=== PATIENT | female | born 1965 | race Caucasian/White ===

== ENCOUNTER 2019-06-12 07:30 | Inpatient (IN) | payer OTHER ==
[2019-06-09 16:32] VITALS: BMI 21.9
--- NOTE | 2019-06-12 07:48 | HP ---
Admitting History and Physical - Admission Chief Complaint: Prolonged menses History of Present Illness: 53 yo Para 2 with h/o prolonged menses associated with anemia is pre op for hysterectomy. History Source: Patient Limitations to Obtaining History: No Limitations - Past Medical History ...LMP: 06/05/19 ...: No - Past Surgical History Past Surgical History: Yes: None Additional Past Surgical History: Heart surgery for murmur - Smoking History Smoking history: Never smoked Have you smoked in the past 12 months: No - Alcohol/Substance Use Hx Alcohol Use: No - Social History Usual Living Arrangement: Yes: With Spouse, With Child History of Recent Travel: No Home Medications - Allergies Allergies/Adverse Reactions: Allergies Allergy/AdvReac Type Severity Reaction Status Date / Time ibuprofen [From Advil] Allergy Intermediate Swelling Verified 06/12/19 06:52 - Home Medications Home Medications: Ambulatory Orders Ferrous Sulfate [Feosol] 325 mg PO DAILY 08/27/17 Oxycodone HCl/Acetaminophen [Percocet 5-325 mg Tablet] 1 tab PO Q4H #20 tablet MDD 20 06/14/19 Family Medical History Family History: Unremarkable Review of Systems - Review of Systems Constitutional: reports: No Symptoms Eyes: reports: No Symptoms HENT: reports: No Symptoms Neck: reports: No Symptoms Cardiovascular: denies: Chest Pain Respiratory: reports: No Symptoms Gastrointestinal: reports: No Symptoms Genitourinary: reports: No Symptoms Breasts: reports: No Symptoms Reported Musculoskeletal: reports: No Symptoms Neurological: reports: No Symptoms Psychiatric: reports: No Symptoms Pain Intensity: 0 Physical Examination Vital Signs: Vital Signs Temperature 98.0 F 06/12/19 06:50 Pulse Rate 81 06/12/19 06:50 Respiratory Rate 20 06/12/19 06:50 Blood Pressure 120/95 06/12/19 06:50 O2 Sat by Pulse Oximetry (%) 100 06/12/19 06:49 Constitutional: Yes: Well Nourished Eyes: Yes: Conjunctiva Clear HENT: Yes: Atraumatic Neck: Yes: Supple Cardiovascular: Yes: Regular Rate and Rhythm Respiratory: Yes: Regular Gastrointestinal: Yes: Normal Bowel Sounds Breast(s): Yes: WNL Musculoskeletal: Yes: WNL Extremities: Yes: WNL Integumentary: Yes: WNL Neurological: Yes: Alert, Oriented Psychiatric: Yes: Alert, Oriented Problem List - Problems (1) Menorrhagia Problems reviewed: Yes Code(s): N92.0 - EXCESSIVE AND FREQUENT MENSTRUATION WITH REGULAR CYCLE Qualifiers: Menorrahagia type: with regular cycle Qualified Code(s): N92.0 - Excessive and frequent menstruation with regular cycle Assessment/Plan Menorrhagia Pre op for hysterectomy Consent signed Anesthesia to see patient
[2019-06-12] MEDS ORDERED: ceFAZolin SODIUM 1 GM VIAL IVPB ONE (08:10)
[2019-06-12] MEDS ORDERED: oxyCODONE HCL 5 MG TABLET PO PRN ×2 (10:00→10:01)
[2019-06-12] MEDS ORDERED: ONDANSETRON 4 MG/2 ML VIAL IVPUSH PRN (10:00)
[2019-06-12] MEDS ORDERED: ACETAMINOPHEN 1000 MG/100 ML VIAL (NON FORMULARY) IVPB ONE (10:11)
[2019-06-12] MEDS ORDERED: IBUPROFEN 800 MG/8 ML IJ IVPB PRN (10:19)
--- NOTE | 2019-06-12 10:22 | OP ---
Operative Note - Note: Operative Date: 06/12/19 Pre-Operative Diagnosis: Menorrhagia Operation: Subtotal hysterectomy / Bilateral salpingectomy Findings: Enlarged myomatous uterus Post-Operative Diagnosis: Other (Leiomyomatous uterus) Surgeon: Stephanie Umana Molecular Biology Director: Rowdy Jessica Anesthesia: General Specimens Removed: Uterus / Tubes Estimated Blood Loss (mls): 150
[2019-06-12] MEDS: DEXTROSE 5%-LACTATED RINGERS 1,000 ML IV SCH ×2 (12:15→18:42)
--- NOTE | 2019-06-12 12:47 | PN ---
Progress Note (short form) - Note Progress Note: I assisted Dr. PASCUAL at hysterecomy, BS, for the entire case.
[2019-06-12] MEDS ORDERED: HYDROmorphone HCl 2 MG/ML VIAL IVPB PRN (12:50)
[2019-06-12] MEDS: LACTATED RINGERS SOLUTION 1,000 ML IV SCH (14:52)
[2019-06-12] MEDS: ACETAMINOPHEN 1000 MG/100 ML VIAL (NON FORMULARY) IVPB SCH ×2 (16:36→21:49)
[2019-06-12] MEDS ORDERED: FLU VACCINE QUAD 60 MCG/0.5 ML (MDV 19-20) IM ONE (19:00)
[2019-06-13] MEDS: DEXTROSE 5%-LACTATED RINGERS 1,000 ML IV SCH (02:26)
[2019-06-13] MEDS: ACETAMINOPHEN 1000 MG/100 ML VIAL (NON FORMULARY) IVPB SCH ×2 (04:09→14:44)
--- NOTE | 2019-06-13 12:49 | PN ---
Progress Note, Physician Chief Complaint: Post op History of Present Illness: 53 yo Para 2, status post abdominal hysterectomy, seen and evaluated. She c/o incision pain. She's lying in bed and feels hungry. - Current Medication List Current Medications: Active Medications Fentanyl (Sublimaze Injection -) 50 mcg IVPUSH [id number] PRN PRN Reason: PAIN-PACU ORDER X 4 DOSES ONLY Hydromorphone HCl (Dilaudid Vial -) 1 mg IVPB Q4H PRN PRN Reason: PAIN LEVEL 7 - 10 Last Admin: 06/12/19 13:48 Dose: 1 mg Lactated Ringer's (Lactated Ringers Solution) 1,000 mls @ 125 mls/hr IV [facility] Last Admin: 06/12/19 14:52 Dose: Not Given Dextrose/Lactated Ringer's (D5-Lr -) 1,000 mls @ 125 mls/hr IV [facility] Last Admin: 06/13/19 02:26 Dose: 125 mls/hr Ibuprofen (Caldolor Injection -) 800 mg IVPB Q8H PRN PRN Reason: FEVER Ondansetron HCl (Zofran Injection) 4 mg IVPUSH Q6H PRN PRN Reason: NAUSEA AND/OR VOMITING Last Admin: 06/12/19 16:35 Dose: 4 mg Oxycodone/Acetaminophen (Percocet 5/325 -) 1 combo PO Q4H PRN PRN Reason: PAIN LEVEL 1-5 - Objective Vital Signs: Vital Signs Temperature 98.8 F 06/13/19 10:00 Pulse Rate 85 06/13/19 10:00 Respiratory Rate 16 06/13/19 10:00 Blood Pressure 120/64 06/13/19 10:00 O2 Sat by Pulse Oximetry (%) 98 06/13/19 09:00 Constitutional: No: No Distress Eyes: Yes: Conjunctiva Clear HENT: Yes: Atraumatic Neck: Yes: Supple Cardiovascular: Yes: Regular Rate and Rhythm Respiratory: Yes: Regular Gastrointestinal: Yes: Other (Positive incision pain, dressing intact) Wound/Incision: Yes: Clean/Dry Neurological: Yes: Alert, Oriented ...Motor Strength: WNL Psychiatric: Yes: Alert, Oriented Problem List - Problems (1) Menorrhagia Problems reviewed: Yes Code(s): N92.0 - EXCESSIVE AND FREQUENT MENSTRUATION WITH REGULAR CYCLE Qualifiers: Menorrahagia type: with regular cycle Qualified Code(s): N92.0 - Excessive and frequent menstruation with regular cycle (2) Status post abdominal hysterectomy Problems reviewed: Yes Code(s): Z90.710 - ACQUIRED ABSENCE OF BOTH CERVIX AND UTERUS Assessment/Plan Status post abdominal hysterectomy Ambulation Analgesia as needed Refular diet F/U Labs D/C IV fluid
[2019-06-13] MEDS: ACETAMINOPHEN 325 MG TABLET (FP) PO PRN ×2 (13:03→21:30)
[2019-06-13] MEDS: oxyCODONE HCL 5 MG TABLET PO PRN ×2 (13:04→21:29)
[2019-06-13 13:35] LABS: BASO % 0.2 % (0-2.0); EOS % 0.1 % (0-4.5); HEMATOCRIT 23.1 % (32.4-45.2); LYMPH % 6.8 % (8-40); MCH 20.1 pg (25.7-33.7); MEAN CELL VOLUME 66.8 fl (80-96); MEAN PLT VOLUME 8.3 fl (7.5-11.1); MONO % 5.6 % (3.8-10.2); NEUT % 87.3 % (42.8-82.8); PLATELET COUNT 320 K/MM3 (134-434); RBC 3.46 M/mm3 (3.60-5.2); RDW 17.3 % (11.6-15.6); WHITE BLOOD COUNT 11.4 K/mm3 (4.0-10.0)
[2019-06-13] MEDS: LACTATED RINGERS SOLUTION 1,000 ML IV SCH (13:39)
[2019-06-13 14:03] LABS: ANISOCYTOSIS 2+; PLATELET ESTIMATE ADEQUATE
[2019-06-13 14:04] LABS: BLOOD UREA NITROGEN 6.1 mg/dL (7-18); CALCIUM 7.8 mg/dL (8.5-10.1); CREATININE 0.4 mg/dL (0.55-1.3)
--- NOTE | 2019-06-13 14:34 | PN ---
Progress Note (short form) - Note Progress Note: Anesthesia postop note 53 y/o f s/p GA for hysterectomy, studio potter for postop pain management POD#1, vss, aaox3, no complaints, pain well controlled, studio potter discontinued. No anesthesia complications.
[2019-06-13] MEDS: FERROUS SO4 325 MG TABLET (FP) PO SCH (16:50)
[2019-06-14] MEDS: ACETAMINOPHEN 325 MG TABLET (FP) PO PRN (08:47)
[2019-06-14] MEDS: oxyCODONE HCL 5 MG TABLET PO PRN (08:48)
[2019-06-14] MEDS: FERROUS SO4 325 MG TABLET (FP) PO SCH (08:49)
[2019-06-14 13:59] VITALS: BP 120/84; PULSE 77; TEMP 98.2
--- NOTE | 2019-06-14 14:12 | DS ---
Physical Examination Vital Signs: Vital Signs Temperature 98.2 F 06/14/19 13:56 Pulse Rate 77 06/14/19 13:56 Respiratory Rate 20 06/14/19 13:56 Blood Pressure 120/84 06/14/19 13:56 O2 Sat by Pulse Oximetry (%) 98 06/14/19 09:00 Constitutional: Yes: No Distress HENT: Yes: Normocephalic Neck: Yes: Trachea Midline Cardiovascular: Yes: Regular Rate and Rhythm Respiratory: Yes: Regular Gastrointestinal: Yes: Normal Bowel Sounds Musculoskeletal: No: Muscle Pain, Muscle Weakness Extremities: No: Calf Tenderness Wound/Incision: Yes: Dressing Dry and Intact ...Motor Strength: WNL Psychiatric: Yes: Alert, Oriented Labs: CBC, BMP 06/13/19 13:16 06/13/19 13:16 Discharge Summary Problems reviewed: Yes Reason For Visit: MENORRHAGIA Current Active Problems Status post abdominal hysterectomy (Acute) Procedures: Principal: Subtotal hysterectomy / Bilateral salpingectomy Hospital Course: Routine post op care Health Concerns: Thromboembolic event Plan of Treatment: Ambulation Percocet for pain F/U with MD in 10 days Goals: Resume normal activities in 3 weeks Condition: Good - Instructions Diet, Activity, Other Instructions: Regular diet No driving, no lifting, x 3 weeks F/U with MD on 06/23/19 Disposition: HOME - Home Medications Comprehensive Discharge Medication List: Ambulatory Orders Ferrous Sulfate [Feosol] 325 mg PO DAILY 08/27/17 Oxycodone HCl/Acetaminophen [Percocet 5-325 mg Tablet] 1 tab PO Q4H #20 tablet MDD 20 06/14/19
--- NOTE | 2019-06-14 17:46 | PATH ---
Surgical Pathology Report Patient Name: NEO LESLIE [facility]. Rec. #: [id number] /Age/Gender: 1965 (Age: 53) / F Account: [id number] Location: [address] [place] [address] Taken: 06/12/2019 Received: 06/12/2019 Reported: 06/14/2019 Physicians: Stephanie Umana M.D. Specimen(s) Received A: RIGHT SIDE FALLOPIAN TUBE B: LEFT SIDE FALLOPIAN TUBE C: SKIN SCAR TISSUE D: UTERUS Clinical History Menorrhagia and fibroids Final Diagnosis A. FALLOPIAN TUBE, RIGHT SIDE, SALPINGECTOMY: FALLOPIAN TUBE WITH PARATUBAL AND WALTHARD NEST CYSTS (INCLUDING FIMBRIATED END AND FULL LUMINAL PORTION). B. FALLOPIAN TUBE, LEFT SIDE, SALPINGECTOMY: FALLOPIAN TUBE WITH PARATUBAL CYST (INCLUDING FIMBRIATED END AND FULL LUMINAL PORTION). C. SKIN SCAR TISSUE, EXCISION: SKIN WITH DERMAL FIBROSIS CONSISTENT WITH SCAR. D. UTERUS, ABDOMINAL HYSTERECTOMY: 299 G UTERUS. LEIOMYOMA(TA), INTRAMURAL. PROLIFERATIVE ENDOMETRIUM. ENDOCERVIX WITH CHRONIC CERVICITIS. Electronically Signed Anni Boyd M.D. Gross Description A. Received in formalin labeled "right side tube," is a 2 cm in length fimbriated fallopian tube. The outer surface is luu and smooth. Sectioning reveals an unremarkable lumen. [employer] sections are submitted in 2 cassettes as follows: 1-fimbria; 2-cross sections of fallopian tube. B. Received in formalin labeled "left side tube," is a 2.5 cm in length fimbriated fallopian tube. The outer surface is luu and smooth. Sectioning reveals an unremarkable lumen. [employer] sections are submitted in 2 cassettes as follows: 1-fimbria; 2-cross sections of fallopian tube. C. Received in formalin labeled "skin scar tissue," is an 8.5 x 1.0 cm tomlin, elliptical, unoriented portion of skin excised to depth of 1.1 cm. The epidermal surface displays a central, linear scar. [employer] sections are submitted in one cassette. D. Received in formalin labeled "uterus," is a 299 g supracervically amputated uterus with no attached adnexa. The specimen measures 9.5 cm from superior to inferior, 8.0 cm from anterior to posterior and 7.5 cm from left to right. The endometrial cavity measures 7 cm in length and 4.2 cm in diameter. The endometrium is tomlin-brown and averages 0.1 cm in thickness. The myometrium displays a 5 cm in greatest dimension intramural nodule. There are additional smaller intramural nodules present. The cut surface of all the intramural nodules is tomlin and rubbery with whorled architecture. No areas of hemorrhage or necrosis are identified. The remaining myometrium is tomlin gregory and measures up to 4.3 cm in thickness. [employer] sections are submitted in 8 cassettes as follows: 1-cervical stump margin of resection; 4-5-vaqtkwsg endomyometrium; 2-1-fwdlqyazn endomyometrium; 6-7-largest intramural nodule; 8-additional intramural nodules. 06/13/2019 [facility]06/13/2019
--- NOTE | 2019-06-30 19:00 | OP ---
DATE OF OPERATION: 06/12/2019 PREOPERATIVE DIAGNOSIS: Menorrhagia and leiomyoma of the uterus. POSTOPERATIVE DIAGNOSIS: Menorrhagia and leiomyoma of the uterus. PROCEDURE: Subtotal hysterectomy and bilateral salpingectomy. SURGEON: Stephanie Umana MD CHIP TUNER: Rowdy Jessica MD ANESTHESIA: General. COMPLICATIONS: None. ESTIMATED BLOOD LOSS: 200 mL. DESCRIPTION OF PROCEDURE: Patient was taken to the operating room where general anesthesia was administered. Patient was then placed in supine position. She was prepped and draped in proper sterile fashion. A Pfannenstiel skin incision was made approximately 2 cm above the pubic symphysis and extended sharply to the rectus fascia. The fascia was then incised bilaterally with the curved Morgan scissors, and the muscles of the anterior abdominal wall were in the midline by sharp and blunt dissection. The peritoneum was then grasped between 2 pickups, elevated, and entered sharply with the Metzenbaum scissors. The pelvis was examined, and an enlarged myomatous uterus was then found. Then the bowel was packed with moist laparotomy sponges, and the uterus was exteriorized. Two pink clamps were placed on the cornua and used for retraction. The round ligament on both sides were clamped using the LigaSure device and cut. The anterior lip of the broad ligament was incised along the bladder reflection to the midline from both sides. The bladder was gently dissected off the lower uterine segment and the cervix with a sponge stick. Then the utero-ovarian ligament on both sides were then clamped with LigaSure device, burned, and cut. Hemostasis was visualized. The tubes were also clamped on each side with the LigaSure device and cut. The uterine arteries were then skeletonized bilaterally, clamped with the LigaSure device, and burned and cut. Again, hemostasis was assured. Then the uterosacral ligaments were clamped on both sides with the LigaSure device and burned and cut. The uterus was then amputated off the cervix, and the cervical stump was then closed with [id number] stitches of 1-0 Vicryl. The cervical stump was cauterized the cervical canal. The pelvis was then copiously irrigated with normal saline. All laparotomy sponges and instruments were removed from the abdomen. Interceed was placed over the cervical stump. Then the peritoneum was closed using 2-0 Biosyn. The fascia was closed with running 0 Vicryl, and the skin was closed with dilma. Sponge, lap, needle, and instrument counts were correct x2. The patient was taken to PACU in stable condition. PATHOLOGY: Uterus and tubes. STEPHANIE UMANA M.D. [facility]/[id number]
== END 2019-06-14 15:28 | disposition home or self-care (01) | DRG 519 ==
LOC: JSAMEDAYSX 09:19 → J6S 11:32
PROVIDERS: ADMIT Obstetrics & Gynecology; ATTEND Obstetrics & Gynecology
PROC: 0UT70ZZ Resection of Bilateral Fallopian Tubes, Open Approach (ICD-10-PCS; 2019-06-12)
PROC: 0UT90ZZ Resection of Uterus, Open Approach (ICD-10-PCS; principal; 2019-06-12 07:30)
DX: D25.1 Intramural leiomyoma of uterus (principal); N92.0 Excessive and frequent menstruation with regular cycle; N72 Inflammatory disease of cervix uteri; N83.8 Other noninflammatory disorders of ovary, fallopian tube and broad ligament
CPT/HCPCS: 36415; 80048; 85025; 88302-TC; 88304-TC; 88307-TC; 94010; 94760; G0008; J0131; Q2036

== ENCOUNTER 2020-05-17 12:09 | Emergency (ER) | payer OTHER ==
[2020-05-17 12:43] VITALS: BP 118/79; PULSE 72; TEMP 97.2; BMI 22.8
== END 2020-05-17 14:05 | disposition home or self-care (01) ==
LOC: JERFT 12:09
DX: Z11.59 Encounter for screening for other viral diseases (principal)
CPT/HCPCS: 71045-TC-FY; C9803; Q3014-GT; U0003